=== PATIENT | female | born 1965 | race Caucasian/White ===

== ENCOUNTER → 2024-02-24 06:18 | Day surgery (SDC) | payer OTHER, SELFPAY ==
[2024-02-24 12:46] VITALS: BMI 22.1
[2024-02-24 12:47] VITALS: BP 128/76; BMI 22.1
[2024-02-24] MEDS: TYLENOL 1000 MG PO (12:57)
== END ==
LOC: SDS 06:18
PROVIDERS: ATTENDING PHYSICIAN Orthopaedic Surgery
DX: M65.311 Trigger thumb, right thumb (principal); Z53.9 Procedure and treatment not carried out, unspecified reason
CPT/HCPCS: 26055